=== PATIENT | female | born 1970 | race Caucasian/White ===

== ENCOUNTER 2017-03-13 16:21 | Emergency (ER) | payer OTHER ==
[~2017-03-13] VITALS: Ht 160 cm; Wt 63.2 kg
[2017-03-13 17:06] VITALS: BP 144/78
[2017-03-13 17:47] LABS: BASOPHILS # (AUTO) 0.3 K/uL (0.00-0.22); EOSINOPHILS # (AUTO) 0.1 K/uL (0-0.4); HEMATOCRIT 37.9 % (36-48); HEMOGLOBIN 12.8 g/dL (12.0-16.0); LYMPHOCYTES # (AUTO) 1.4 K/uL (2.5-16.5); MEAN CORPUSCULAR HEMOGLOBIN 31 pg (27-31); MEAN CORPUSCULAR HGB CONC 34 g/dL (33-37); MEAN CORPUSCULAR VOLUME 92 fL (80-94); MONOCYTES # (AUTO) 0.7 K/uL (0.8-1.0); NEUTROPHILS # (AUTO) 6.1 K/uL (1.8-7.7); PLATELET COUNT (AUTO) 254 K/uL (140-450); RED BLOOD CELL COUNT(AUTO) 4.13 MIL/uL (4.20-5.40); WHITE BLOOD COUNT (AUTO) 8.6 K/uL (4.8-10.8)
[2017-03-13 17:55] LABS: ANION GAP 11.2 (8-16); CARBON DIOXIDE 26.6 mmol/L (21-32); CREATININE 0.8 mg/dL (0.6-1.3); POTASSIUM 3.8 mmol/L (3.5-5.1)
[2017-03-13 18:01] LABS: ALBUMIN 3.9 g/dL (3.4-5.0); TOTAL BILIRUBIN 0.6 mg/dL (0.0-1.0)
[2017-03-13 18:05] LABS: APPEARANCE,URINE CLEAR (CLEAR); BILIRUBIN,URINE NEGATIVE (NEGATIVE); BLOOD, URINE 3+ (NEGATIVE); COLOR,URINE YELLOW (YELLOW); LEUKOCYTE ESTERASE ,URINE NEGATIVE (NEGATIVE); NITRITE, URINE NEGATIVE (NEGATIVE); UGLUCOSE NEGATIVE (NEGATIVE)
[2017-03-13 18:10] LABS: RBC,URINE 3-10 (FEW) /HPF (0-5); WBC,URINE 0-5 (RARE) /HPF (0-5)
--- NOTE | 2017-03-13 19:32 | NUR ---
PATIENT TO ER BED 4
--- NOTE | 2017-03-13 19:35 | NUR ---
46/F c/o right sided breast/chest pain starting this afternoon. Pt states "I was standing and got dizzy." Pt describes pain as dull, constant, non radiating, 4/10. Pt denies pain at this time. Also reports nausea, denies vomiting. AOX4, clear speech. VSS.
--- NOTE | 2017-03-13 19:39 | NUR ---
Patient being evaluated by Dr. Miller at bedside.
[2017-03-13 20:07] VITALS: BP 124/77
== END 2017-03-13 20:07 | disposition home or self-care (01) ==
LOC: MED 16:21
DX: S29.011A Strain of muscle and tendon of front wall of thorax, initial encounter (principal); I10 Essential (primary) hypertension; Z88.0 Allergy status to penicillin; X58.XXXA Exposure to other specified factors, initial encounter; Y93.89 Activity, other specified; Y92.89 Other specified places as the place of occurrence of the external cause; Y99.8 Other external cause status
CPT/HCPCS: 36415; 71010; 80053; 81001; 84484; 85025; 87086; 93005; 99285